=== PATIENT | male | born 1985 | race Caucasian/White ===

== ENCOUNTER 2020-03-02 19:08 | Inpatient (IN) | payer BC ==
[~2020-03-02] VITALS: Ht 167.6 cm; Wt 67.6 kg
[2020-03-02 20:00] VITALS: BP_SYST 140
--- NOTE | 2020-03-02 20:00 | NUR ---
Patient to ER bed 3 to gown for evaluation. Side rails up. Report given to MAGDA.
--- NOTE | 2020-03-02 20:10 | NUR ---
ER Dr. AGNEL at bedside examining patient.
--- NOTE | 2020-03-02 20:20 | NUR ---
Pt BIBA to ED C/O a 3-hour history of acute onset, mild seizure. Per EMS, patient had a seizure 1 hour prior to arrival witnessed by his girlfriend. On EMS arrival, patient appeared confused. He had a blood glucose in the 200s. He has no known history of seizures. On ED arrival, patient endorses feeling dizzy and vomiting all day. Symptoms associated with mild low back pain and mild shortness of breath. Patient admits to drinking half a pint of liquor every week. Denies any drug use, head injury, photophobia, neck pain or headache. Denies any flulike symptoms, fever, chest pain.
[2020-03-02] MEDS ORDERED: ONDANSETRON 4 MG ODT TAB PO ONE (20:45)
[2020-03-02 20:58] LABS: CALCIUM 9.7 mg/dL (8.4-11.0); CREATININE 1.04 mg/dL (0.55-1.30)
[2020-03-02 21:00] LABS: BASOPHILS % (AUTO) 0.3 % (0.0-2.0); HEMATOCRIT 44.3 % (36-54); HEMOGLOBIN 14.7 g/dL (14.0-18.0); LYMPHOCYTES # (AUTO) 0.5 K/uL (1.0-5.5); LYMPHOCYTES % (AUTO) 3.4 % (20.5-51.5); MEAN CORPUSCULAR HEMOGLOBIN 29 pg (27-31); MEAN CORPUSCULAR HGB CONC 33 % (32-36); MEAN CORPUSCULAR VOLUME 86 fL (79.0-98.0); MONOCYTES # (AUTO) 0.5 K/uL (0.0-1.0); MONOCYTES % (AUTO) 3.3 % (1.7-9.3); NEUTROPHILS # (AUTO) 13.1 K/uL (1.8-7.7); PLATELET COUNT (AUTO) 360 K/uL (130-430); RED BLOOD CELL COUNT(AUTO) 5.15 MIL/uL (4.2-6.2); RED CELL DISTRIBUTION WIDTH 20.7 % (9.0-15.0); WHITE BLOOD COUNT (AUTO) 14.1 K/uL (4.8-10.8)
--- NOTE | 2020-03-02 21:00 | NUR ---
Pt taken to Radiology in stable condition
[2020-03-02 21:04] LABS: ALBUMIN 4.7 g/dL (3.4-4.8); TOTAL BILIRUBIN 2.7 mg/dL (0.0-1.0)
[2020-03-02 21:12] LABS: POTASSIUM 2.6 mmol/L (3.5-5.1)
--- NOTE | 2020-03-02 21:20 | NUR ---
Pt back from Radiology, well tolerated
[2020-03-02] MEDS ORDERED: MAGNESIUM SULFATE 50 ML IV ONE (21:30)
[2020-03-02] MEDS ORDERED: KCL 40 mEq in 100 mL (PREMIX) 100 ML IV ONE (21:30)
[2020-03-02] MEDS ORDERED: POTASSIUM CHLORIDE 20 MEQ TAB.PRT.SR PO ONE (21:30)
[2020-03-02] MEDS ORDERED: KCL 20 mEq in 100 mL (PREMIX) 200 ML IV ONE (21:51)
--- NOTE | 2020-03-02 22:15 | NUR ---
VSS No s/s of acute distress. Resting on gurney rails up
--- NOTE | 2020-03-02 23:19 | NUR ---
Mg and Kcl IV replacements well tolerated
[2020-03-03] MEDS ORDERED: chlordiazePOXIDE HCL 25 MG CAPSULE PO ONE (00:15)
--- NOTE | 2020-03-03 00:30 | NUR ---
ADMISSION: The patient, ELSIE MI, 34 y/o, M admitted by DILLON LEE MD, was given written information regarding hospital policies, unit procedures and contact persons. Valuables were checked and charted. Patient AOx4. Potassium Chloride 20 meq started in ER continues infusing to IV in left wrist. Patient tolerating.
--- NOTE | 2020-03-03 00:30 | NUR ---
Patient will be admitted to care of . Admitted to Tele unit. Will go to room 109. Belongings list completed. Complete and up to date summary report printed. SBAR report to be given at bedside with opportunity for questions.
--- NOTE | 2020-03-03 00:30 | NUR ---
Transfer to Tele via ACLS protocol. Licensed nurse present. IV present no signs or symptoms of infiltration.
[2020-03-03 00:49] VITALS: BP_SYST 124
--- NOTE | 2020-03-03 02:40 | NUR ---
Paged Dr. Villalobos Patient vomitting, complains of feeling dizzy. Seizure precautions in place. Bed in lowest position, padded side rails, call light within reach. Paged Dr Villalobos for orders. Will continue to monitor patient.
--- NOTE | 2020-03-03 03:15 | NUR ---
Rounds Patient vomiting dark red/brown emesis, continuing to wait for Dr Villalobos to return page. Gave ice chips to patient, patient tolerating, HOB elevated.
--- NOTE | 2020-03-03 03:33 | NUR ---
PAGED PAGED Isreal NGUYỄN
--- NOTE | 2020-03-03 04:20 | NUR ---
Rounds Patient resting with eyes closed, no complaint at this time. HOB remains elevated. No vomiting at this time.
[2020-03-03] MEDS ORDERED: FOLIC ACID 1 MG, THIAMINE HCL 100 MG, MAGNESIUM SULFATE 1 GM, MVI 10 ML in NACL 0.9% 1,... IV SCH ×3 (05:00→17:30)
[2020-03-03] MEDS ORDERED: ONDANSETRON HCL 4 MG/2 ML VIAL IVP PRN ×2 (05:00→17:30)
--- NOTE | 2020-03-03 05:40 | NUR ---
Spoke with Dr Villalobos Spoke with Dr. Villalobos, received new orders for Zofran and Banana Bag. Orders entered.
--- NOTE | 2020-03-03 05:57 | NUR ---
CONSULTATION PAGED/CALLED Reason for Consultation: SEIZURE AND HYPOKALEMIA Person Who was Notified:SHARRON Consulting Physician: CARMEN Motor [employer] Chauffeur Specialty: Ordering Physician:Isreal LEE
--- NOTE | 2020-03-03 06:00 | NUR ---
IV out Attempted to give patient Zofran IVP as ordered, nurse found IV out. Patient states he must have pulled it out when he was asleep. Zofran held at this time until IV replaced. Will replace IV.
--- NOTE | 2020-03-03 06:30 | NUR ---
IV replaced IV replaced to left forearm 22G, patent and flushing well. Saline locked. HOB remains elevated, seizure precautions in place. Safety precautions maintained throughout shift. All needs met. Will continue to monitor until endorsed to AM nurse.
[2020-03-03 08:00] VITALS: BP_SYST 133
--- NOTE | 2020-03-03 08:00 | NUR ---
ASSUMPTION OF CARE: RECEIVED PT A/A/OX4, DX:RISK FOR INJURY, R/T SEIZURE, VSS, AFEBRILE, IV SITE INTACT, PATENT, NO REDNESS OR SWELLING, FALL,SZ. PRECAUTIONS IMPLEMENTED, SIDE RAILS PADDED UP X3, ORIENTED TO UNIT, CALL LIGHT PLACED WITHIN REACH, WILL CONT' TO MONITOR AND ASSESS.
[2020-03-03] MEDS ORDERED: THIAMINE HCL 100 MG, MAGNESIUM SULFATE 1 GM in NS 100 ML IV SCH (09:00)
[2020-03-03] MEDS ORDERED: FOLIC ACID 1 MG, MVI 10 ML in NACL 0.9% 1,000 ML IV SCH ×2 (09:00→18:00)
--- NOTE | 2020-03-03 09:00 | NUR ---
COVER CUTTER: MORNING MEDS GIVEN, PER ORDERED BY Yani, TOLERATED WELL, WILL CONT' TO MONITOR AND ASSESS.
--- NOTE | 2020-03-03 09:30 | NUR ---
EEG: EEG DONE AT THIS TIME, TOLERATED WELL, WILL CONT' TO MONITOR AND ASSESS.
[2020-03-03 12:00] VITALS: BP_SYST 139
--- NOTE | 2020-03-03 14:00 | NUR ---
MRI: PT OFF UNIT TO RADIOLOGY FOR MRI HEAD W/O CONTRAST, WILL CONT' WITH POC.
[2020-03-03 16:00] VITALS: BP_SYST 139
--- NOTE | 2020-03-03 17:00 | NUR ---
NURSES NOTES: PT RESTING IN BED, EASILY AROUSED VIA VERBAL STIMULI, NO S/S OF DISTRESS, NO SZ. ACTIVITY NOTED AT THIS TIME, PRECAUTIONS IMPLEMENTED, SIDE RAILS PADDED, UP X3, CALL LIGHT WITHIN REACH, FREQUENT ROUNDING BY NURSE AND STAFF, NEEDS MET, CALL LIGHT WITHIN REACH, WILL CONT' TO MONITOR AND ASSESS.
[2020-03-03] MEDS ORDERED: LORazepam 2 MG/ML VIAL IVP PRN (17:30)
[2020-03-03] MEDS ORDERED: ACETAMINOPHEN 325 MG TABLET PO PRN (17:30)
[2020-03-03] MEDS ORDERED: HYDROcodone/ACETAMIN 10-325 MG TAB PO PRN (17:30)
[2020-03-03] MEDS ORDERED: HYDROcodone/ACETAMIN 5-325 MG TAB (NORCO/ VICODIN) PO PRN (17:30)
--- NOTE | 2020-03-03 19:30 | NUR ---
INITIAL NOTE RECEIVED PATIENT IN BED EYES CLOSED RESTING WITH NO SIGNS OF DISTRESS NOTED. IVF RUNNING AND PT TOLERATING. IV SHOWS NO SIGNS OF INFILTRATION. HOB ELEVATED. CALL LIGHT WITHIN REACH, BED IN LOWEST POSITION AND BED ALARM ON. DINNER TRAY AT BEDSIDE. SEIZURE PRECAUTIONS IN PLACE, BED RAILS PADDED.
[2020-03-03 20:00] VITALS: BP_SYST 130
[2020-03-03] MEDS: chlordiazePOXIDE HCL 25 MG CAPSULE PO SCH (21:10)
[2020-03-03] MEDS: NORMAL SALINE 5 ML DISP.SYRIN IVF SCH ×2 (21:11→22:00)
--- NOTE | 2020-03-03 22:30 | NUR ---
ROUNDS AWAKE WATCHING TV, PATIENT DENIES FEELING OF NAUSEA AND REPORTS NO VOMITING AT THIS TIME. PATIENT TOLERATING PO WATER INTAKE HOWEVER REPORTS POOR APPETITE AT THIS TIME. NO ADDITIONAL NEEDS AT THIS TIME.
[2020-03-04] VITALS: BP_SYST 135
[2020-03-04] MEDS: FOLIC ACID 1 MG, MVI 10 ML in NACL 0.9% 1,000 ML IV SCH ×2 (01:15→16:04)
[2020-03-04] MEDS: THIAMINE HCL 100 MG, MAGNESIUM SULFATE 1 GM in NS 100 ML IV SCH ×2 (01:15→16:04)
--- NOTE | 2020-03-04 02:00 | NUR ---
ROUNDS RESTING COMFORTABLY WITH EYES CLOSED. CONTINUES TO TOLERATE IVF. WILL CONTINUE TO MONITOR.
[2020-03-04] MEDS: NORMAL SALINE 5 ML DISP.SYRIN IVF SCH ×2 (05:19→06:30)
[2020-03-04 07:23] LABS: BASOPHILS % (AUTO) 0.4 % (0.0-2.0); EOSINOPHILS % (AUTO) 0.4 % (0.0-4.0); HEMATOCRIT 45.3 % (36-54); HEMOGLOBIN 14.8 g/dL (14.0-18.0); LYMPHOCYTES # (AUTO) 1.7 K/uL (1.0-5.5); MEAN CORPUSCULAR HEMOGLOBIN 28 pg (27-31); MEAN CORPUSCULAR HGB CONC 33 % (32-36); MEAN CORPUSCULAR VOLUME 86 fL (79.0-98.0); MONOCYTES # (AUTO) 0.5 K/uL (0.0-1.0); MONOCYTES % (AUTO) 4.7 % (1.7-9.3); NEUTROPHILS # (AUTO) 7.7 K/uL (1.8-7.7); NEUTROPHILS % (AUTO) 77.5 % (40.0-70.0); RED BLOOD CELL COUNT(AUTO) 5.26 MIL/uL (4.2-6.2); RED CELL DISTRIBUTION WIDTH 20.6 % (9.0-15.0); WHITE BLOOD COUNT (AUTO) 9.9 K/uL (4.8-10.8)
[2020-03-04 07:53] LABS: ALBUMIN 3.8 g/dL (3.4-4.8); CALCIUM 9.1 mg/dL (8.4-11.0); CREATININE 0.76 mg/dL (0.55-1.30); TOTAL BILIRUBIN 1.1 mg/dL (0.0-1.0)
[2020-03-04 08:01] LABS: POTASSIUM 2.8 mmol/L (3.5-5.1)
[2020-03-04] MEDS ORDERED: POTASSIUM CHLORIDE 40 MEQ in NS 250 ML IV ONE (08:15)
[2020-03-04 08:19] VITALS: BP_SYST 140
[2020-03-04 08:24] LABS: PLATELET COUNT (AUTO) 270 K/uL (130-430)
[2020-03-04] MEDS: chlordiazePOXIDE HCL 25 MG CAPSULE PO SCH ×2 (08:54→16:03)
[2020-03-04] MEDS ORDERED: FOLIC ACID 1 MG TABLET PO SCH (09:00)
[2020-03-04] MEDS ORDERED: THIAMINE HCL 100 MG TABLET PO SCH (09:00)
[2020-03-04] MEDS ORDERED: MULTIVITAMINS TAB 1 TABLET PO SCH (09:00)
--- NOTE | 2020-03-04 10:21 | NUR ---
alert, oriented, no hand tremors noted. " start drinking at young age, it is a bit late to quit now, he said. K+ this am 2.8, 40meq K ivpb replaced at this time, at the rate of 60cc/hr, secondary to complaint of burning . patient explained just in case , has any sign or sx of etoh withdrawal, notify author for medication. verbalized understanding. bedrest now
--- NOTE | 2020-03-04 11:18 | NUR ---
Auto Driver Note Patient referred to Auto Driver by Nursing Assessment for alcohol abuse. APPRAISER AUDITOR also conducted a Discharge Plan Assessment. Met with patient at bedside. He is alert and oriented. He considers this a "wake up call" and plans to stop all drinking. APPRAISER AUDITOR provided substance abuse resources and advised starting with a program such as AA. Patient has been to AA in the past. He plans to quit on his own. Discussed. Patient confirmed he only wanted his mother on the face sheet. No apparent barriers to his return home where he lives with his fiance. SS/CM/DC Coordinator will remain available if needed.
[2020-03-04 12:13] VITALS: BP_SYST 124
--- NOTE | 2020-03-04 14:18 | NUR ---
Dietitian Recommendations *Continue Regular diet Please see Nutrition Assessment for further details. LT, RD
--- NOTE | 2020-03-04 15:37 | NUR ---
FIRST MOTHER CALLED, AND SAID THE PATIENT DISCHARGED [place] BY ATTENDING, NO WRITTEN ORDER, EXPLAINED TO HER. PATIENT COMPLETED HIS 250CC BAG WITH 40MEQ K IN IT, UNEVENTFULLY, BECAME ANGRY, AGGRESSIVE, " WANT TO GET OUT OF HERE, I WILL SIGN THE AMA FORM". EXPLAINED HE SHOULD WAIT FOR NEURO CONSULT BEFORE MAKING ANY DECISION, " NO I WANT TO GO NOW" AMA SIGNED, HEP LOCK , WRIST BAND OUT, SECURITY NOTIFIED ABOUT THE LEAVING.
--- NOTE | 2020-03-04 15:45 | NUR ---
BROUGHT THE AMA FORM FOR THE PATIENT TO SIGN, " CHANGED MY MIND, I WONT GO ANYWHERE".
[2020-03-04 16:12] VITALS: BP_SYST 124
--- NOTE | 2020-03-04 17:44 | NUR ---
Agreed to stay, finally. " i am very nervous, i need some meds to calm me down please. 1mg ATIVAN ivp given. Continues to get banana bag as ordered.
[2020-03-04] MEDS ORDERED: Thiamine Hcl PO (18:07)
[2020-03-04] MEDS ORDERED: POTA8TAB4 PO (18:07)
[2020-03-04] MEDS ORDERED: LIB25 PO (18:07)
[2020-03-04] MEDS ORDERED: FOLI-43 PO (18:07)
[2020-03-04] MEDS ORDERED: Multivitamins Tab PO (18:07)
[2020-03-04 18:17] VITALS: BP_SYST 132
[2020-03-04 19:30] VITALS: BP_SYST 129
--- NOTE | 2020-03-04 19:30 | NUR ---
RECEIVED REPORT FROM AMY BECK. PATIENT TO BE DC'D HOME, PER MORNING SHIFT RN, DC PAPERS AND DC HANDOUTS ALREADY DONE, PATIENT ALREADY EDUCATED REGARDING DC ORDERS AND MEDICATIONS. PATIENT SITTING IN CHAIR, BREATHING EVENLY AND NONLABORED ON ROOM AIR, VITAL SIGNS STABLE. IV ON LEFT FOREARM DISCONTINUED, IV CATHETER INTACT, PATIENT TOLERATED IT WELL, NO S/S OF INFECTION NOTED. NO OTHER NEEDS AT THIS TIME. PATIENT DISCHARGED HOME WITH SHANNAN.
== END 2020-03-04 19:35 | disposition home or self-care (01) | DRG 101 ==
LOC: SED 19:08 → STU 23:10
PROVIDERS: ADMIT Preventive Medicine Preventive Medicine/Occupational Environmental Medicine; ATTEND Preventive Medicine Preventive Medicine/Occupational Environmental Medicine
DX: G40.89 Other seizures (principal); E87.1 Hypo-osmolality and hyponatremia; E87.2 Acidosis; D72.829 Elevated white blood cell count, unspecified; E11.65 Type 2 diabetes mellitus with hyperglycemia; E87.6 Hypokalemia; F10.10 Alcohol abuse, uncomplicated; I10 Essential (primary) hypertension; E80.6 Other disorders of bilirubin metabolism; S00.512A Abrasion of oral cavity, initial encounter; X58.XXXA Exposure to other specified factors, initial encounter; Y93.89 Activity, other specified; Y92.89 Other specified places as the place of occurrence of the external cause; Y99.8 Other external cause status
CPT/HCPCS: 36415; 70450-TC; 70551; 80053; 83605; 83735-TC; 85025; 87040-TC; 93005; 95816; 96365; 96368; 99285; G0378; G0482; J2060; J2405; J3411; J3475; J3480; J3490; J7030; J7050; Q0162

== ENCOUNTER 2020-07-11 04:35 | Inpatient (IN) | payer BC, SELFPAY ==
[~2020-07-11] VITALS: Ht 167.6 cm; Wt 77.1 kg
[~2020-07-11 04:35] MED LIST: FOLI-43 PO; LIB25 PO; Multivitamins Tab PO; POTA8TAB4 PO; Thiamine Hcl PO
[2020-07-11 04:40] VITALS: BP_SYST 134
[2020-07-11] MEDS ORDERED: MORPHINE 4 MG/ML INJ. SYRINGE IM ONE (05:00)
[2020-07-11] MEDS ORDERED: MORPHINE 4 MG/ML INJ. SYRINGE IVP ONE (05:15)
[2020-07-11] MEDS ORDERED: fentaNYL CITRATE/PF 100 MCG/2 ML AMP IVP ONE ×2 (05:30→07:00)
[2020-07-11 06:14] LABS: BASOPHILS # (AUTO) 0.2 K/uL (0.0-0.2); BASOPHILS % (AUTO) 1.4 % (0.0-2.0); EOSINOPHILS % (AUTO) 0.2 % (0.0-4.0); HEMATOCRIT 45.6 % (36-54); HEMOGLOBIN 14.7 g/dL (14.0-18.0); LYMPHOCYTES # (AUTO) 1.5 K/uL (1.0-5.5); LYMPHOCYTES % (AUTO) 12.8 % (20.5-51.5); MEAN CORPUSCULAR HEMOGLOBIN 27 pg (27-31); MEAN CORPUSCULAR HGB CONC 32 % (32-36); MEAN CORPUSCULAR VOLUME 83 fL (79.0-98.0); MONOCYTES # (AUTO) 0.6 K/uL (0.0-1.0); MONOCYTES % (AUTO) 5.3 % (1.7-9.3); NEUTROPHILS # (AUTO) 9.1 K/uL (1.8-7.7); NEUTROPHILS % (AUTO) 80.3 % (40.0-70.0); PLATELET COUNT (AUTO) 368 K/uL (130-430); RED CELL DISTRIBUTION WIDTH 21.2 % (9.0-15.0); WHITE BLOOD COUNT (AUTO) 11.4 K/uL (4.8-10.8)
[2020-07-11] MEDS ORDERED: LIDOCAINE 1% 10 MG/ML, 20 ML MDV INJ ONE (06:30)
[2020-07-11 06:48] LABS: CALCIUM 9.1 mg/dL (8.4-11.0); CREATININE 1.98 mg/dL (0.55-1.30)
[2020-07-11] MEDS ORDERED: LIDOCAINE 1%, 20 ML MDV 20 ML ONE (06:53)
[2020-07-11 06:54] LABS: ALBUMIN 4.4 g/dL (3.4-4.8); TOTAL BILIRUBIN 0.3 mg/dL (0.0-1.0)
[2020-07-11] MEDS ORDERED: D5/0.45 NS 1,000 ML IV ONE (07:15)
[2020-07-11] MEDS ORDERED: INSULIN REGULAR, HUMAN 100 UNITS/ML, 10 ML VIAL (humuLIN R) SUBCUT PRN (07:15)
[2020-07-11] MEDS ORDERED: MORPHINE 2 MG/ML INJ. SYRINGE IVP PRN (07:15)
[2020-07-11] MEDS ORDERED: hydrALAZINE HCL 20 MG/ML VIAL IVP PRN (07:15)
[2020-07-11] MEDS ORDERED: LISI10TA5 PO (07:19)
[2020-07-11] MEDS ORDERED: GLU500 PO (07:19)
[2020-07-11 07:23] LABS: POTASSIUM 2.5 mmol/L (3.5-5.1)
[2020-07-11] MEDS ORDERED: KCL 20 mEq in NS 1000 mL 1,000 ML IV ONE (07:30)
[2020-07-11] MEDS ORDERED: POTASSIUM CHLORIDE 20 MEQ TAB.PRT.SR PO ONE (07:30)
[2020-07-11 07:43] LABS: PROTHROMBIN TIME 10.5 SECS (9.5-12.5)
[2020-07-11] MEDS: MORPHINE 2 MG/ML INJ. SYRINGE IVP PRN ×2 (08:49→11:01)
[2020-07-11 09:40] VITALS: BP_SYST 142
[2020-07-11] MEDS: ONDANSETRON HCL 4 MG/2 ML VIAL IVP PRN (10:30)
[2020-07-11 12:10] VITALS: BP_SYST 132
[2020-07-11] MEDS: HYDROmorphone 2 MG/ML VIAL IVP PRN ×3 (14:59→23:07)
[2020-07-11] MEDS: METOCLOPRAMIDE HCL 10 MG/2 ML VIAL IVP PRN ×2 (14:59→21:46)
[2020-07-11] MEDS ORDERED: HYDROmorphone 1 MG INJ. 1 MG/ML AMPUL IVP PRN (15:00)
[2020-07-11 16:30] VITALS: BP_SYST 132
[2020-07-11 20:00] VITALS: BP_SYST 142
[2020-07-11] MEDS: DIPHENHYDRAMINE INJ 50 MG/ML VIAL IVP PRN (23:58)
[2020-07-12] VITALS (13 sets, daily range): BP systolic 129–159
[2020-07-12] MEDS: HYDROmorphone 2 MG/ML VIAL IVP PRN ×4 (03:19→16:35)
[2020-07-12] MEDS: DIPHENHYDRAMINE INJ 50 MG/ML VIAL IVP PRN ×2 (05:57→14:30)
[2020-07-12 08:19] LABS: BILIRUBIN,URINE 1+ (NEGATIVE); BLOOD, URINE NEGATIVE (NEGATIVE); CLARITY/URINE CLEAR (CLEAR); COLOR,URINE YELLOW (YELLOW); GLUCOSE,URINE NEGATIVE (NEGATIVE); KETONES,URINE 1+ (NEGATIVE); LEUKOCYTE ESTERASE ,URINE NEGATIVE (NEGATIVE); NITRITE, URINE NEGATIVE (NEGATIVE); PH,URINE 6.5 (5.0-8.0); PROTEIN URINE TRACE (NEGATIVE)
[2020-07-12] MEDS: ONDANSETRON HCL 4 MG/2 ML VIAL IVP PRN (08:23)
[2020-07-12] MEDS: chlordiazePOXIDE HCL 25 MG CAPSULE PO SCH ×2 (15:00→21:00)
[2020-07-12 15:35] LABS: CALCIUM 9.5 mg/dL (8.4-11.0); CREATININE 0.68 mg/dL (0.55-1.30); POTASSIUM 3.5 mmol/L (3.5-5.1)
[2020-07-12] MEDS: metFORMIN HCL 500 MG TABLET PO SCH (18:46)
[2020-07-12] MEDS ORDERED: fentaNYL CITRATE/PF 100 MCG/2 ML AMP IVP PRN ×2 (20:15)
[2020-07-12] MEDS ORDERED: ONDANSETRON HCL 4 MG/2 ML VIAL IVP PRN (20:15)
[2020-07-12] MEDS ORDERED: ACETAMINOPHEN 325 MG TABLET PO PRN (20:30)
[2020-07-12] MEDS ORDERED: NALOXONE HCL 0.4 MG/ML AMP (NARCAN) IVP PRN (20:30)
[2020-07-12] MEDS: HYDROcodone/ACETAMIN 5-325 MG TAB (NORCO/ VICODIN) PO PRN (22:29)
[2020-07-13 01:08] VITALS: BP_SYST 155
[2020-07-13] MEDS: HYDROcodone/ACETAMIN 5-325 MG TAB (NORCO/ VICODIN) PO PRN ×4 (05:49→20:46)
[2020-07-13 08:00] VITALS: BP_SYST 139
[2020-07-13] MEDS: metFORMIN HCL 500 MG TABLET PO SCH ×2 (08:51→18:53)
[2020-07-13] MEDS: chlordiazePOXIDE HCL 25 MG CAPSULE PO SCH ×3 (08:51→21:00)
[2020-07-13] MEDS ORDERED: POTASSIUM CHLORIDE 8 MEQ TABLET.SA PO SCH (09:00)
[2020-07-13] MEDS ORDERED: LISINOPRIL 10 MG TABLET (PRINIVIL) PO SCH (09:00)
[2020-07-13] MEDS ORDERED: FOLIC ACID 1 MG TABLET PO SCH (09:00)
[2020-07-13 12:16] VITALS: BP_SYST 130
[2020-07-13 16:18] VITALS: BP_SYST 116
[2020-07-13 20:00] VITALS: BP_SYST 119
[2020-07-13 20:58] VITALS: BP_SYST 119
== END 2020-07-13 21:45 | disposition home or self-care (01) | DRG 563 ==
LOC: SED 04:35 → SMU 07:12
PROVIDERS: ADMIT Internal Medicine; ATTEND Internal Medicine
PROC: 0HQ1XZZ Repair Face Skin, External Approach (ICD-10-PCS; principal; 2020-07-11)
PROC: 0PSDXZZ Reposition Left Humeral Head, External Approach (ICD-10-PCS; 2020-07-13)
DX: S42.252A Displaced fracture of greater tuberosity of left humerus, initial encounter for closed fracture (principal); W10.8XXA Fall (on) (from) other stairs and steps, initial encounter; S01.91XA Laceration without foreign body of unspecified part of head, initial encounter; R58 Hemorrhage, not elsewhere classified; I10 Essential (primary) hypertension; Z20.828 Contact with and (suspected) exposure to other viral communicable diseases; S42.92XA Fracture of left shoulder girdle, part unspecified, initial encounter for closed fracture; Y93.89 Activity, other specified; Y99.8 Other external cause status; Y92.89 Other specified places as the place of occurrence of the external cause; Z79.899 Other long term (current) drug therapy
CPT/HCPCS: 36415; 70450-TC; 72125-TC; 73030; 73200-TC; 76000; 80048; 80053; 81003; 82962; 84132-TC; 85025; 85610-TC; 86886; 86900; 86901; 87081; 96361; 96374; 96375; 96376; 99285; A4565; J1170; J1200; J1815; J2001; J2270; J2405; J2765; J3010; J3480

== ENCOUNTER 2020-11-11 18:38 | Emergency (ER) | payer BC, SELFPAY ==
[~2020-11-11] VITALS: Ht 167.6 cm; Wt 72.6 kg
[2020-11-11 18:38] VITALS: BP_SYST 153
[~2020-11-11 18:38] MED LIST changes: +GLU500 PO; +LISI10TA5 PO; -Multivitamins Tab PO; -Thiamine Hcl PO
[2020-11-11] MEDS ORDERED: NS 500 ML IV ONE ×2 (18:45→19:00)
[2020-11-11 19:38] LABS: ANION GAP 22 (5-15); CALCIUM 9.3 mg/dL (8.4-11.0); CHLORIDE 99 mmol/L (98-107); CREATININE 1.26 mg/dL (0.55-1.30); GLUCOSE 95 mg/dL (70-99); POTASSIUM 3.9 mmol/L (3.5-5.1); SODIUM SERUM 138 mmol/L (136-145); UREA NITROGEN, BLOOD 14 mg/dL (8-21)
[2020-11-11 19:43] LABS: ALANINE AMINOTRANSFERASE 93 U/L (12-78); ALBUMIN 4.3 g/dL (3.4-4.8); ASPARTATE AMINOTRANSFERASE 84 U/L (10-37); TOTAL BILIRUBIN 1.2 mg/dL (0.0-1.0)
[2020-11-11 19:48] LABS: BASOPHILS # (AUTO) 0.1 K/uL (0.0-0.2); EOSINOPHILS # (AUTO) 0.1 K/uL (0.0-0.4); EOSINOPHILS % (AUTO) 2.4 % (0.0-4.0); HEMATOCRIT 47.1 % (36-54); HEMOGLOBIN 15.4 g/dL (14.0-18.0); LYMPHOCYTES # (AUTO) 0.4 K/uL (1.0-5.5); LYMPHOCYTES % (AUTO) 7.4 % (20.5-51.5); MEAN CORPUSCULAR HEMOGLOBIN 30 pg (27-31); MEAN CORPUSCULAR HGB CONC 33 % (32-36); MEAN CORPUSCULAR VOLUME 90 fL (79.0-98.0); MONOCYTES # (AUTO) 0.3 K/uL (0.0-1.0); MONOCYTES % (AUTO) 4.6 % (1.7-9.3); NEUTROPHILS # (AUTO) 4.7 K/uL (1.8-7.7); NEUTROPHILS % (AUTO) 83.6 % (40.0-70.0); PLATELET COUNT (AUTO) 382 K/uL (130-430); RED BLOOD CELL COUNT(AUTO) 5.23 MIL/uL (4.2-6.2); RED CELL DISTRIBUTION WIDTH 21.2 % (9.0-15.0); WHITE BLOOD COUNT (AUTO) 5.6 K/uL (4.8-10.8)
[2020-11-11 19:49] LABS: GFR AFRICAN AMERICAN 83 mL/min (>90)
[2020-11-11 19:54] LABS: ACETAMINOPHEN < 1 ug/mL (1-30); ALCOHOL, BLOOD < 3 mg/dL (<10)
[2020-11-11 19:55] LABS: BARBITURATE, URINE NEGATIVE (NEG <=200); BENZODIAZEPINE, URINE POSITIVE (NEG <=150); CANNABINOID, URINE POSITIVE (NEG <=50); COCAINE, URINE POSITIVE (NEG <=150); METHAMPHETAMINES SCREEN,URINE NEGATIVE (NEG <=500); OPIATE, URINE NEGATIVE (NEG <=100); PHENCYCLIDINE SCREEN,URINE NEGATIVE (NEG <=25); UR TRICYCLIC ANTIDEPRESSANTS NEGATIVE (NEG <=300); URINE AMPHETAMINE NEGATIVE (NEG <=500); URINE METHADONE NEGATIVE (NEG <=200); URINE OXYCODONE SCREEN NEGATIVE (NEG <=100); URINE PROPOXYPHENE SCREEN NEGATIVE (NEG <=300)
[2020-11-11] MEDS ORDERED: LORazepam 2 MG/ML VIAL IVP ONE (20:00)
[2020-11-11 20:46] VITALS: BP_SYST 133
== END 2020-11-11 20:46 | disposition home or self-care (01) ==
LOC: SED 18:38
DX: F19.10 Other psychoactive substance abuse, uncomplicated (principal); R56.9 Unspecified convulsions; I10 Essential (primary) hypertension; E11.9 Type 2 diabetes mellitus without complications; Z79.899 Other long term (current) drug therapy
CPT/HCPCS: 36415; 70450; 80053; 80307; 85025; 93005; 96361; 96374; 99285; G0480; G0481; G0482; J7040

== ENCOUNTER 2021-01-05 15:04 | Emergency (ER) | payer BC ==
[~2021-01-05] VITALS: Ht 167.6 cm; Wt 77.1 kg
[~2021-01-05 15:04] MED LIST changes: +LISI10TA29 PO; -LISI10TA5 PO
[2021-01-05 15:07] VITALS: BP_SYST 161
[2021-01-05] MEDS ORDERED: LIB25 PO (15:17)
[2021-01-05 16:07] LABS: BASOPHILS # (AUTO) 0.2 K/uL (0.0-0.2); BASOPHILS % (AUTO) 2.7 % (0.0-2.0); EOSINOPHILS # (AUTO) 0.1 K/uL (0.0-0.4); HEMATOCRIT 40.8 % (36-54); HEMOGLOBIN 13.8 g/dL (14.0-18.0); LYMPHOCYTES # (AUTO) 0.4 K/uL (1.0-5.5); LYMPHOCYTES % (AUTO) 7.2 % (20.5-51.5); MEAN CORPUSCULAR HEMOGLOBIN 31 pg (27-31); MEAN CORPUSCULAR HGB CONC 34 % (32-36); MEAN CORPUSCULAR VOLUME 91 fL (79.0-98.0); MONOCYTES # (AUTO) 0.3 K/uL (0.0-1.0); MONOCYTES % (AUTO) 5.6 % (1.7-9.3); NEUTROPHILS # (AUTO) 4.7 K/uL (1.8-7.7); NEUTROPHILS % (AUTO) 82.5 % (40.0-70.0); PLATELET COUNT (AUTO) 364 K/uL (130-430); RED BLOOD CELL COUNT(AUTO) 4.48 MIL/uL (4.2-6.2); RED CELL DISTRIBUTION WIDTH 19.7 % (9.0-15.0); WHITE BLOOD COUNT (AUTO) 5.6 K/uL (4.8-10.8)
[2021-01-05 16:21] LABS: C-REACTIVE PROTEIN QUANT 0.4 mg/dL (0-0.5)
[2021-01-05 16:23] LABS: ACETONE, SERUM NEGATIVE (NEGATIVE)
[2021-01-05 16:25] LABS: ALANINE AMINOTRANSFERASE 75 U/L (12-78); ALBUMIN 3.7 g/dL (3.4-4.8); ANION GAP 14 (5-15); ASPARTATE AMINOTRANSFERASE 104 U/L (10-37); CALCIUM 7.5 mg/dL (8.4-11.0); CHLORIDE 102 mmol/L (98-107); CREATININE 0.76 mg/dL (0.55-1.30); GLUCOSE 82 mg/dL (70-99); POTASSIUM 3.3 mmol/L (3.5-5.1); SODIUM SERUM 140 mmol/L (136-145); TOTAL BILIRUBIN 1.1 mg/dL (0.0-1.0); UREA NITROGEN, BLOOD 9 mg/dL (8-21)
[2021-01-05 16:28] LABS: GFR AFRICAN AMERICAN 148 mL/min (>90)
[2021-01-05] MEDS ORDERED: CLIN300C12 PO (16:41)
[2021-01-05] MEDS ORDERED: CLOT15CR5 TP (16:52)
[2021-01-05 16:57] VITALS: BP_SYST 161
== END 2021-01-05 16:58 | disposition home or self-care (01) ==
LOC: SED 15:04
DX: L03.116 Cellulitis of left lower limb (principal); L03.115 Cellulitis of right lower limb; I10 Essential (primary) hypertension; E11.9 Type 2 diabetes mellitus without complications; Z79.899 Other long term (current) drug therapy; W57.XXXA Bitten or stung by nonvenomous insect and other nonvenomous arthropods, initial encounter; Y93.89 Activity, other specified; Y92.89 Other specified places as the place of occurrence of the external cause; Y99.8 Other external cause status
CPT/HCPCS: 36415; 80053; 82009-TC; 83605; 85025; 85610-TC; 85730-TC; 86140; 99283

== ENCOUNTER 2021-02-13 19:37 | Emergency (ER) | payer BC ==
[~2021-02-13] VITALS: Ht 167.6 cm; Wt 74.8 kg
[2021-02-13 19:37] VITALS: BP_SYST 135
[~2021-02-13 19:37] MED LIST changes: +CLIN300C12 PO; +CLOT15CR5 TP; -POTA8TAB4 PO
--- NOTE | 2021-02-13 19:37 | NUR ---
Patient biba to bed 4 for evaluation
--- NOTE | 2021-02-13 19:39 | NUR ---
ER at bedside examining patient.
[2021-02-13] MEDS ORDERED: levETIRAcetam 1,000 MG in NS 90 ML IV ONE (19:45)
[2021-02-13 20:27] LABS: BASOPHILS # (AUTO) 0.1 K/uL (0.0-0.2); BASOPHILS % (AUTO) 0.6 % (0.0-2.0); EOSINOPHILS % (AUTO) 0.1 % (0.0-4.0); HEMATOCRIT 44.7 % (36-54); LYMPHOCYTES # (AUTO) 1.2 K/uL (1.0-5.5); LYMPHOCYTES % (AUTO) 10.6 % (20.5-51.5); MEAN CORPUSCULAR HEMOGLOBIN 30 pg (27-31); MEAN CORPUSCULAR HGB CONC 34 % (32-36); MEAN CORPUSCULAR VOLUME 88 fL (79.0-98.0); MONOCYTES # (AUTO) 0.6 K/uL (0.0-1.0); MONOCYTES % (AUTO) 5.2 % (1.7-9.3); NEUTROPHILS # (AUTO) 9.1 K/uL (1.8-7.7); NEUTROPHILS % (AUTO) 83.5 % (40.0-70.0); PLATELET COUNT (AUTO) 236 K/uL (130-430); RED BLOOD CELL COUNT(AUTO) 5.05 MIL/uL (4.2-6.2); RED CELL DISTRIBUTION WIDTH 20.1 % (9.0-15.0); WHITE BLOOD COUNT (AUTO) 10.9 K/uL (4.8-10.8)
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
[2021-02-13 20:40] LABS: ANION GAP 14 (5-15); CALCIUM 9.2 mg/dL (8.4-11.0); CHLORIDE 90 mmol/L (98-107); CREATININE 1.31 mg/dL (0.55-1.30); GLUCOSE 139 mg/dL (70-99); SODIUM SERUM 131 mmol/L (136-145); UREA NITROGEN, BLOOD 19 mg/dL (8-21)
[2021-02-13 20:46] LABS: GFR AFRICAN AMERICAN 79 mL/min (>90); POTASSIUM 2.9 mmol/L (3.5-5.1)
[2021-02-13 20:56] LABS: ASPARTATE AMINOTRANSFERASE 149 U/L (10-37); TOTAL BILIRUBIN 1.3 mg/dL (0.0-1.0)
[2021-02-13 20:57] LABS: ALANINE AMINOTRANSFERASE 94 U/L (12-78); ALCOHOL, BLOOD < 3 mg/dL (<10)
[2021-02-13] MEDS ORDERED: LEVE500T9 PO (21:39)
[2021-02-13] MEDS ORDERED: LORA-259 PO (21:46)
[2021-02-13 22:15] VITALS: BP_SYST 135
--- NOTE | 2021-02-13 22:15 | NUR ---
Patient given written and verbal discharge instructions and verbalizes understanding. ER DR BOBO YOUNGER discussed with patient the results and treatment provided. Patient in stable condition. ID arm band removed. IV catheter removed intact and dressing applied, no active bleeding. Rx of KEPPRA AND ATIVAN given. Patient educated on pain management and to follow up with PMD. Pain Scale . Opportunity for questions provided and answered. Medication side effect fact sheet provided.
== END 2021-02-13 22:15 | disposition home or self-care (01) ==
LOC: SED 19:37
DX: F10.239 Alcohol dependence with withdrawal, unspecified (principal); R56.9 Unspecified convulsions; I10 Essential (primary) hypertension; E11.9 Type 2 diabetes mellitus without complications; Z79.899 Other long term (current) drug therapy; Y90.0 Blood alcohol level of less than 20 mg/100 ml
CPT/HCPCS: 36415; 70450; 76376; 80053; 85025; 96365; 99284; G0482; J1953

== ENCOUNTER 2021-02-25 13:07 | Inpatient (IN) | payer BC, SELFPAY ==
[~2021-02-25] VITALS: Ht 167.6 cm; Wt 65.3 kg
[2021-02-25 13:07] VITALS: BP_SYST 164
[~2021-02-25 13:07] MED LIST changes: +LEVE500T9 PO; +LORA-259 PO
[2021-02-25] MEDS ORDERED: LORazepam 2 MG/ML VIAL IVP ONE ×2 (13:15→15:00)
[2021-02-25] MEDS ORDERED: NACL 0.9% 2,000 ML IV ONE (13:15)
[2021-02-25 13:42] LABS: BARBITURATE, URINE NEGATIVE (NEG <=200); BENZODIAZEPINE, URINE POSITIVE (NEG <=150); CANNABINOID, URINE POSITIVE (NEG <=50); COCAINE, URINE NEGATIVE (NEG <=150); METHAMPHETAMINES SCREEN,URINE NEGATIVE (NEG <=500); OPIATE, URINE NEGATIVE (NEG <=100); PHENCYCLIDINE SCREEN,URINE NEGATIVE (NEG <=25); UR TRICYCLIC ANTIDEPRESSANTS NEGATIVE (NEG <=300); URINE AMPHETAMINE NEGATIVE (NEG <=500); URINE METHADONE NEGATIVE (NEG <=200); URINE OXYCODONE SCREEN NEGATIVE (NEG <=100); URINE PROPOXYPHENE SCREEN NEGATIVE (NEG <=300)
[2021-02-25 13:58] LABS: ANION GAP 24 (5-15); CALCIUM 9.3 mg/dL (8.4-11.0); CHLORIDE 90 mmol/L (98-107); CREATININE 1.63 mg/dL (0.55-1.30); GLUCOSE 174 mg/dL (70-99); POTASSIUM 3.6 mmol/L (3.5-5.1); SODIUM SERUM 137 mmol/L (136-145); UREA NITROGEN, BLOOD 10 mg/dL (8-21)
[2021-02-25 14:04] LABS: ALBUMIN 4.4 g/dL (3.4-4.8); ASPARTATE AMINOTRANSFERASE 86 U/L (10-37)
[2021-02-25 14:13] LABS: ALCOHOL, BLOOD < 3 mg/dL (<10); GFR AFRICAN AMERICAN 62 mL/min (>90)
[2021-02-25 14:17] LABS: ACETONE, SERUM NEGATIVE (NEGATIVE); BASOPHILS # (AUTO) 0.1 K/uL (0.0-0.2); BASOPHILS % (AUTO) 0.3 % (0.0-2.0); HEMATOCRIT 48.5 % (36-54); HEMOGLOBIN 15.8 g/dL (14.0-18.0); LYMPHOCYTES # (AUTO) 1.2 K/uL (1.0-5.5); LYMPHOCYTES % (AUTO) 7.6 % (20.5-51.5); MEAN CORPUSCULAR HEMOGLOBIN 29 pg (27-31); MEAN CORPUSCULAR HGB CONC 33 % (32-36); MEAN CORPUSCULAR VOLUME 90 fL (79.0-98.0); MONOCYTES # (AUTO) 1.5 K/uL (0.0-1.0); MONOCYTES % (AUTO) 9.4 % (1.7-9.3); NEUTROPHILS # (AUTO) 13.1 K/uL (1.8-7.7); NEUTROPHILS % (AUTO) 82.7 % (40.0-70.0); PLATELET COUNT (AUTO) 491 K/uL (130-430); RED BLOOD CELL COUNT(AUTO) 5.38 MIL/uL (4.2-6.2); RED CELL DISTRIBUTION WIDTH 19.7 % (9.0-15.0); WHITE BLOOD COUNT (AUTO) 15.8 K/uL (4.8-10.8)
[2021-02-25 14:36] LABS: ALANINE AMINOTRANSFERASE 110 U/L (12-78)
[2021-02-25] MEDS ORDERED: FOLIC ACID 1 MG, THIAMINE HCL 100 MG, MAGNESIUM SULFATE 1 GM, MVI 10 ML in NACL 0.9% 1,... IV ONE (14:45)
[2021-02-25] MEDS ORDERED: THIAMINE HCL 100 MG, MAGNESIUM SULFATE 1 GM in NS 100 ML IV ONE (15:00)
[2021-02-25] MEDS ORDERED: FOLIC ACID 1 MG, MVI 10 ML in NACL 0.9% 1,000 ML IV ONE (15:00)
[2021-02-25 15:02] LABS: BILIRUBIN,URINE NEGATIVE (NEGATIVE); CLARITY/URINE CLEAR (CLEAR); GLUCOSE,URINE TRACE (NEGATIVE); KETONES,URINE TRACE (NEGATIVE); LEUKOCYTE ESTERASE ,URINE NEGATIVE (NEGATIVE); NITRITE, URINE NEGATIVE (NEGATIVE); PROTEIN URINE 2+ (NEGATIVE); UROBILINOGEN,URINE 0.2 (0.2-1.0)
[2021-02-25 15:05] LABS: BLOOD, URINE TRACE (NEGATIVE); COLOR,URINE YELLOW (YELLOW)
[2021-02-25 15:10] LABS: BACTERIA,URINE FEW /HPF (None Seen); HYALINE CASTS, URINE 0-10 /LPF (None Seen); RBC,URINE 0-3 /HPF (0-3); WBC,URINE 0-3 /HPF (0-3)
[2021-02-25 15:11] LABS: MUCUS,URINE 2+ /LPF (None Seen)
[2021-02-25] MEDS: PIPERACILLIN/TAZO 3.375 GM in NS 50 ML IV ONE ×2 (15:21→15:36)
[2021-02-25] MEDS ORDERED: FOLIC ACID 5 MG/ML VIAL IV ONE (15:23)
[2021-02-25] MEDS ORDERED: MVI 10 ML VIAL IV ONE (15:23)
[2021-02-25] MEDS ORDERED: PIPERACILLIN/TAZOBACTAM 3.375 GM/VIAL (ZOSYN) IV ONE (15:24)
[2021-02-25 15:29] LABS: INFLUENZA A&B ANTIGEN SCREEN NEGATIVE FOR A & B (NEGATIVE)
[2021-02-25] MEDS ORDERED: LIP40 PO (15:34)
[2021-02-25] MEDS ORDERED: GLIM1TAB PO (15:34)
[2021-02-25] MEDS ORDERED: ACETAMINOPHEN 325 MG TABLET PO PRN (15:45)
[2021-02-25] MEDS ORDERED: ZOLPIDEM TARTRATE 5 MG TABLET PO PRN (15:45)
[2021-02-25] MEDS ORDERED: LORazepam 2 MG/ML VIAL IVP PRN ×2 (15:45→21:15)
[2021-02-25] MEDS ORDERED: MUPIROCIN 2% TOPICAL OINTMENT 22 GM NS PRN (15:45)
[2021-02-25] MEDS: D5NS 1,000 ML IV SCH ×2 (15:45→21:51)
[2021-02-25] MEDS ORDERED: DOCUSATE SODIUM 100 MG CAPSULE PO PRN (15:45)
[2021-02-25] MEDS ORDERED: MAGNESIUM SULFATE 50 ML IV PRN (15:45)
[2021-02-25] MEDS ORDERED: POTASSIUM CHLORIDE 20 MEQ TAB.PRT.SR PO PRN (15:45)
[2021-02-25] MEDS ORDERED: ONDANSETRON HCL 4 MG/2 ML VIAL IVP PRN (15:45)
[2021-02-25 16:20] VITALS: BP_SYST 148
[2021-02-25 18:00] LABS: BARBITURATE, URINE NEGATIVE (NEG <=200); BENZODIAZEPINE, URINE POSITIVE (NEG <=150); CANNABINOID, URINE POSITIVE (NEG <=50); COCAINE, URINE NEGATIVE (NEG <=150); METHAMPHETAMINES SCREEN,URINE NEGATIVE (NEG <=500); OPIATE, URINE NEGATIVE (NEG <=100); PHENCYCLIDINE SCREEN,URINE NEGATIVE (NEG <=25); UR TRICYCLIC ANTIDEPRESSANTS NEGATIVE (NEG <=300); URINE AMPHETAMINE NEGATIVE (NEG <=500); URINE METHADONE NEGATIVE (NEG <=200); URINE OXYCODONE SCREEN NEGATIVE (NEG <=100); URINE PROPOXYPHENE SCREEN NEGATIVE (NEG <=300)
[2021-02-25 20:21] VITALS: BP_SYST 153
[2021-02-25] MEDS ORDERED: chlordiazePOXIDE HCL 25 MG CAPSULE PO SCH (21:00)
[2021-02-26] MEDS: LORazepam 2 MG/ML VIAL IVP SCH ×4 (00:46→18:14)
[2021-02-26 00:50] VITALS: BP_SYST 134
[2021-02-26] MEDS: D5NS 1,000 ML IV SCH ×3 (05:26→18:16)
[2021-02-26 06:21] LABS: BASOPHILS # (AUTO) 0.1 K/uL (0.0-0.2); BASOPHILS % (AUTO) 0.9 % (0.0-2.0); EOSINOPHILS % (AUTO) 0.3 % (0.0-4.0); HEMATOCRIT 40.7 % (36-54); HEMOGLOBIN 13.3 g/dL (14.0-18.0); LYMPHOCYTES # (AUTO) 1.7 K/uL (1.0-5.5); LYMPHOCYTES % (AUTO) 14.5 % (20.5-51.5); MEAN CORPUSCULAR HEMOGLOBIN 29 pg (27-31); MEAN CORPUSCULAR HGB CONC 33 % (32-36); MEAN CORPUSCULAR VOLUME 89 fL (79.0-98.0); MONOCYTES # (AUTO) 0.9 K/uL (0.0-1.0); MONOCYTES % (AUTO) 7.5 % (1.7-9.3); NEUTROPHILS # (AUTO) 8.7 K/uL (1.8-7.7); NEUTROPHILS % (AUTO) 76.8 % (40.0-70.0); PLATELET COUNT (AUTO) 439 K/uL (130-430); RED BLOOD CELL COUNT(AUTO) 4.57 MIL/uL (4.2-6.2); RED CELL DISTRIBUTION WIDTH 19.5 % (9.0-15.0); WHITE BLOOD COUNT (AUTO) 11.4 K/uL (4.8-10.8)
[2021-02-26 06:44] LABS: ALBUMIN 3.3 g/dL (3.4-4.8); BILIRUBIN,DIRECT 0.2 mg/dL (0.0-0.3); CREATININE 0.71 mg/dL (0.55-1.30)
[2021-02-26 08:00] VITALS: BP_SYST 157
[2021-02-26] MEDS ORDERED: POTASSIUM CHLORIDE 40 MEQ, LIDOCAINE JECT 2% PF 100 MG 50 MG in NS 250 ML IV ONE (10:30)
[2021-02-26] MEDS ORDERED: ATORVASTATIN 20 MG TABLET PO ONE (12:00)
[2021-02-26] MEDS ORDERED: INSULIN LISPRO SLIDING SCALE 100 UNITS/ML VIAL (humaLOG) SUBCUT PRN (12:15)
[2021-02-26] MEDS ORDERED: GLUCOSE (DEXTROSE) ORAL GEL -Adults PO PRN (12:15)
[2021-02-26] MEDS ORDERED: HEPARIN SODIUM,PORCINE 5,000 UNITS/ML VIAL SUBCUT ONE (12:15)
[2021-02-26] MEDS ORDERED: DEXTROSE 50%-WATER 50 ML DISP.SYRIN IVP PRN (12:15)
[2021-02-26] MEDS ORDERED: D5W 1,000 ML IV PRN (12:15)
[2021-02-26 14:06] VITALS: BP_SYST 128
[2021-02-26 16:48] VITALS: BP_SYST 143
[2021-02-26 20:26] VITALS: BP_SYST 139
[2021-02-26] MEDS: HEPARIN SODIUM,PORCINE 5,000 UNITS/ML VIAL SUBCUT SCH (21:07)
[2021-02-27] VITALS: BP_SYST 137
[2021-02-27] MEDS: LORazepam 2 MG/ML VIAL IVP SCH ×2 (00:18→06:56)
[2021-02-27] MEDS: D5NS 1,000 ML IV SCH ×3 (00:25→14:25)
[2021-02-27] MEDS ORDERED: GLIMEPIRIDE 2 MG TABLET PO SCH (07:00)
[2021-02-27 07:36] VITALS: BP_SYST 140
[2021-02-27 07:42] LABS: BASOPHILS # (AUTO) 0.1 K/uL (0.0-0.2); BASOPHILS % (AUTO) 1.1 % (0.0-2.0); EOSINOPHILS # (AUTO) 0.1 K/uL (0.0-0.4); EOSINOPHILS % (AUTO) 0.7 % (0.0-4.0); HEMATOCRIT 41.8 % (36-54); HEMOGLOBIN 13.4 g/dL (14.0-18.0); LYMPHOCYTES # (AUTO) 2.3 K/uL (1.0-5.5); LYMPHOCYTES % (AUTO) 25.4 % (20.5-51.5); MEAN CORPUSCULAR HEMOGLOBIN 29 pg (27-31); MEAN CORPUSCULAR HGB CONC 32 % (32-36); MEAN CORPUSCULAR VOLUME 90 fL (79.0-98.0); MONOCYTES # (AUTO) 0.7 K/uL (0.0-1.0); MONOCYTES % (AUTO) 7.5 % (1.7-9.3); NEUTROPHILS # (AUTO) 5.9 K/uL (1.8-7.7); NEUTROPHILS % (AUTO) 65.3 % (40.0-70.0); PLATELET COUNT (AUTO) 460 K/uL (130-430); RED BLOOD CELL COUNT(AUTO) 4.63 MIL/uL (4.2-6.2); RED CELL DISTRIBUTION WIDTH 19.7 % (9.0-15.0); WHITE BLOOD COUNT (AUTO) 9.1 K/uL (4.8-10.8)
[2021-02-27 07:57] LABS: CALCIUM 8.3 mg/dL (8.4-11.0); CREATININE 0.59 mg/dL (0.55-1.30); POTASSIUM 3.8 mmol/L (3.5-5.1)
[2021-02-27] MEDS: HEPARIN SODIUM,PORCINE 5,000 UNITS/ML VIAL SUBCUT SCH (08:29)
[2021-02-27] MEDS ORDERED: ATORVASTATIN 20 MG TABLET PO SCH (09:00)
[2021-02-27 11:29] VITALS: BP_SYST 133
[2021-02-27] MEDS ORDERED: LIB25 PO (14:25)
[2021-02-27 14:32] VITALS: BP_SYST 133
[2021-02-27] MEDS ORDERED: chlordiazePOXIDE HCL 25 MG CAPSULE PO SCH (15:00)
== END 2021-02-27 14:52 | disposition home or self-care (01) | DRG 100 ==
LOC: SED 13:07 → STU 15:26
PROVIDERS: ADMIT General Practice; ATTEND General Practice
DX: R56.9 Unspecified convulsions (principal); G92 Toxic encephalopathy; N17.0 Acute kidney failure with tubular necrosis; E87.3 Alkalosis; E44.1 Mild protein-calorie malnutrition; E87.2 Acidosis; F10.231 Alcohol dependence with withdrawal delirium; D72.829 Elevated white blood cell count, unspecified; Z20.822 Contact with and (suspected) exposure to COVID-19; E11.9 Type 2 diabetes mellitus without complications; E78.5 Hyperlipidemia, unspecified; R74.01 Elevation of levels of liver transaminase levels; I10 Essential (primary) hypertension; F12.10 Cannabis abuse, uncomplicated; E86.0 Dehydration; M10.9 Gout, unspecified; E87.6 Hypokalemia; Z90.81 Acquired absence of spleen; Z68.23 Body mass index [BMI] 23.0-23.9, adult
CPT/HCPCS: 36415; 36600; 70450-TC; 71045; 76376; 80048; 80053; 80076; 80307; 81000; 82009; 82803-TC; 82962; 83036; 83605; 83735; 84550; 85025; 86710; 87040-TC; 87086; 93005; 96361; 96374; 96375; 96376; 99285; G0378; G0482; J1644; J2060; J2543; J3411; J3475; J3480; J3490; J7030; J7042; J7050

== ENCOUNTER 2021-03-07 14:05 | Emergency (ER) | payer BC, SELFPAY ==
[~2021-03-07] VITALS: Ht 188 cm; Wt 108.9 kg
[~2021-03-07 14:05] MED LIST changes: -CLIN300C12 PO; -CLOT15CR5 TP; -FOLI-43 PO; +GLIM1TAB PO; -GLU500 PO; -LEVE500T9 PO; +LIP40 PO; -LISI10TA29 PO; -LORA-259 PO
[2021-03-07 14:08] VITALS: BP_SYST 165
[2021-03-07 14:55] LABS: BASOPHILS # (AUTO) 0.1 K/uL (0.0-0.2); BASOPHILS % (AUTO) 1.1 % (0.0-2.0); HEMATOCRIT 46.4 % (36-54); HEMOGLOBIN 15.5 g/dL (14.0-18.0); LYMPHOCYTES # (AUTO) 2.4 K/uL (1.0-5.5); LYMPHOCYTES % (AUTO) 30.2 % (20.5-51.5); MEAN CORPUSCULAR HEMOGLOBIN 29 pg (27-31); MEAN CORPUSCULAR HGB CONC 33 % (32-36); MEAN CORPUSCULAR VOLUME 88 fL (79.0-98.0); MONOCYTES # (AUTO) 0.5 K/uL (0.0-1.0); MONOCYTES % (AUTO) 6.1 % (1.7-9.3); NEUTROPHILS # (AUTO) 4.9 K/uL (1.8-7.7); NEUTROPHILS % (AUTO) 62.6 % (40.0-70.0); PLATELET COUNT (AUTO) 339 K/uL (130-430); RED BLOOD CELL COUNT(AUTO) 5.27 MIL/uL (4.2-6.2); RED CELL DISTRIBUTION WIDTH 20.6 % (9.0-15.0); WHITE BLOOD COUNT (AUTO) 7.8 K/uL (4.8-10.8)
[2021-03-07] MEDS ORDERED: NACL 0.9% 1,000 ML IV ONE (15:00)
[2021-03-07 15:10] LABS: CALCIUM 8.4 mg/dL (8.4-11.0); CREATININE 0.81 mg/dL (0.55-1.30); POTASSIUM 3.6 mmol/L (3.5-5.1)
[2021-03-07] MEDS ORDERED: ONDA4TAB5 PO (16:07)
[2021-03-07] MEDS ORDERED: IBUP-1971 PO (16:07)
[2021-03-07 16:12] VITALS: BP_SYST 153
== END 2021-03-07 16:12 | disposition home or self-care (01) ==
LOC: SED 14:05
DX: R56.9 Unspecified convulsions (principal); R11.2 Nausea with vomiting, unspecified; I10 Essential (primary) hypertension; E11.9 Type 2 diabetes mellitus without complications; Z79.899 Other long term (current) drug therapy
CPT/HCPCS: 36415; 80048; 85025; 96360; 99283; J7030

== ENCOUNTER 2021-06-11 21:08 | Inpatient (IN) | payer BC, SELFPAY ==
[~2021-06-11] VITALS: Ht 167.6 cm; Wt 72.4 kg
[~2021-06-11 21:08] MED LIST changes: +IBUP-1971 PO; +ONDA4TAB5 PO
[2021-06-11 21:30] VITALS: BP_SYST 152
--- NOTE | 2021-06-11 21:30 | NUR ---
PT TO BED 7 FOR EVALUATION.
[2021-06-11] MEDS ORDERED: DIPHENHYDRAMINE INJ 50 MG/ML VIAL IVP ONE (21:45)
[2021-06-11] MEDS ORDERED: ONDANSETRON HCL 4 MG/2 ML VIAL IVP ONE (21:45)
[2021-06-11] MEDS ORDERED: LORazepam 2 MG/ML VIAL IVP ONE ×2 (21:45→22:30)
[2021-06-11] MEDS ORDERED: NACL 0.9% 1,000 ML IV ONE ×2 (21:45→22:30)
--- NOTE | 2021-06-11 21:45 | NUR ---
pt arrived to ER with complaints of Nausea and vomiting since 629 today. pt states he has been drinking all of last night, about a 1/5th of vodka is what he stated.. pt states he is an alcoholic. states the drinking is normal for him, but the vomiting is not. states he has thrown up 25-50 times. A&ox4 and states no pain now, just weakness.
--- NOTE | 2021-06-11 22:00 | NUR ---
BG 274
--- NOTE | 2021-06-11 22:00 | NUR ---
# 20 gauge angiocath placed to lac. Use of asceptic technique. Opsite placed over site. Blood return noted. Blood for lab drawn from site. Flushed with 10 cc of normal saline. No evidence of infiltration noted. Patient tolerated well.
[2021-06-11 22:26] LABS: HEMATOCRIT 44.6 % (36-54); LYMPHOCYTES # (AUTO) 0.3 K/uL (1.0-5.5); MONOCYTES # (AUTO) 0.8 K/uL (0.0-1.0); WHITE BLOOD COUNT (AUTO) 11.9 K/uL (4.8-10.8)
[2021-06-11 22:32] LABS: BASOPHILS % (AUTO) 0.2 % (0.0-2.0); HEMOGLOBIN 14.9 g/dL (14.0-18.0); LYMPHOCYTES % (AUTO) 2.7 % (20.5-51.5); MEAN CORPUSCULAR HEMOGLOBIN 28 pg (27-31); MEAN CORPUSCULAR HGB CONC 33 % (32-36); MEAN CORPUSCULAR VOLUME 85 fL (79.0-98.0); MONOCYTES % (AUTO) 6.8 % (1.7-9.3); NEUTROPHILS # (AUTO) 10.8 K/uL (1.8-7.7); NEUTROPHILS % (AUTO) 90.3 % (40.0-70.0); PLATELET COUNT (AUTO) 242 K/uL (130-430); RED BLOOD CELL COUNT(AUTO) 5.24 MIL/uL (4.2-6.2)
[2021-06-11 22:44] LABS: ANION GAP 28 (5-15); CREATININE 0.95 mg/dL (0.55-1.30); GLUCOSE 248 mg/dL (70-99); SODIUM SERUM 137 mmol/L (136-145); UREA NITROGEN, BLOOD 11 mg/dL (8-21)
[2021-06-11 22:49] LABS: ALANINE AMINOTRANSFERASE 60 U/L (12-78); ALBUMIN 4.5 g/dL (3.4-4.8); ASPARTATE AMINOTRANSFERASE 66 U/L (10-37); LIPASE 128 U/L (73-393); TOTAL BILIRUBIN 2.4 mg/dL (0.0-1.0)
[2021-06-11 22:54] LABS: GFR AFRICAN AMERICAN 115 mL/min (>90)
[2021-06-11 22:56] LABS: ALCOHOL, BLOOD < 3 mg/dL (<10); CHLORIDE 84 mmol/L (98-107)
[2021-06-11] MEDS ORDERED: FOLIC ACID 1 MG, THIAMINE HCL 100 MG, MAGNESIUM SULFATE 2 GM, MVI 10 ML in NACL 0.9% 1,... IV ONE (23:15)
[2021-06-11] MEDS ORDERED: FOLIC ACID 5 MG/ML VIAL IV ONE (23:22)
[2021-06-11] MEDS ORDERED: MVI 10 ML VIAL IV ONE (23:22)
[2021-06-11] MEDS ORDERED: MAGNESIUM SULFATE 1 GM/2 ML VIAL ONE ×2 (23:22→23:31)
[2021-06-11] MEDS ORDERED: THIAMINE HCL 100 MG/ML VIAL ONE (23:22)
--- NOTE | 2021-06-11 23:45 | NUR ---
pt had 1 episode of coffee ground emesis. doctor aware.
[2021-06-12] MEDS ORDERED: METOCLOPRAMIDE HCL 10 MG/2 ML VIAL IVP ONE ×2 (00:15→05:45)
[2021-06-12] MEDS ORDERED: PANTOPRAZOLE SODIUM 80 MG in NS 100 ML IV ONE (00:15)
[2021-06-12] MEDS ORDERED: PANTOPRAZOLE SODIUM 40 MG in NS 50 ML IV ONE (00:15)
[2021-06-12] MEDS ORDERED: LORazepam 2 MG/ML VIAL IVP ONE ×2 (00:15→05:45)
[2021-06-12] MEDS ORDERED: NACL 0.9% 1,000 ML IV ONE ×2 (00:30→03:45)
[2021-06-12] MEDS ORDERED: METOPROLOL TARTRATE 5 MG/5 ML AMPUL IVP ONE (00:30)
[2021-06-12] MEDS ORDERED: PANTOPRAZOLE SODIUM 40 MG/VIAL (PROTONIX) ONE ×2 (00:30)
[2021-06-12] MEDS ORDERED: KCL 20 mEq in 100 mL (PREMIX) 100 ML IV ONE (00:30)
--- NOTE | 2021-06-12 02:00 | NUR ---
pt states "im feeling much better", pts VS and color look much better after the medications.
--- NOTE | 2021-06-12 03:55 | NUR ---
pt sleeping in bed, no complaints at this time
--- NOTE | 2021-06-12 05:30 | NUR ---
bg 106
[2021-06-12] MEDS ORDERED: METOCLOPRAMIDE HCL 10 MG/2 ML VIAL ONE (05:41)
[2021-06-12] MEDS ORDERED: LORazepam 2 MG/ML VIAL ONE (05:41)
[2021-06-12] MEDS ORDERED: GLU500 PO (05:57)
--- NOTE | 2021-06-12 05:59 | NUR ---
PT IS FULL CODE
--- NOTE | 2021-06-12 05:59 | NUR ---
PTS MED REC DONE
--- NOTE | 2021-06-12 06:00 | NUR ---
ADMIT ORDERS RECEIVED FROM DR. ZELAYA. PT AWAITING TELE BED PLACEMENT.
--- NOTE | 2021-06-12 06:30 | NUR ---
Waiting on admit orders for pt.
[2021-06-12] MEDS: LR 1,000 ML IV SCH ×2 (06:53→15:33)
--- NOTE | 2021-06-12 07:09 | NUR ---
REPORT GIVEN TO AMY CASTRO WHO WILL ASSUME CARE.
--- NOTE | 2021-06-12 07:10 | NUR ---
Assumed care of patient, report received from AMY Glez. Currently sleeping, awaiting room assignment on Tele floor. V/S stable, no acute distress noted.
[2021-06-12 07:16] LABS: BASOPHILS % (AUTO) 0.4 % (0.0-2.0); HEMATOCRIT 37.9 % (36-54); HEMOGLOBIN 12.6 g/dL (14.0-18.0); LYMPHOCYTES # (AUTO) 1.7 K/uL (1.0-5.5); MEAN CORPUSCULAR HEMOGLOBIN 29 pg (27-31); MEAN CORPUSCULAR HGB CONC 33 % (32-36); MEAN CORPUSCULAR VOLUME 86 fL (79.0-98.0); MONOCYTES % (AUTO) 10.4 % (1.7-9.3); NEUTROPHILS % (AUTO) 72.2 % (40.0-70.0); PLATELET COUNT (AUTO) 194 K/uL (130-430); RED BLOOD CELL COUNT(AUTO) 4.42 MIL/uL (4.2-6.2); RED CELL DISTRIBUTION WIDTH 23.7 % (9.0-15.0); WHITE BLOOD COUNT (AUTO) 9.7 K/uL (4.8-10.8)
[2021-06-12 07:25] LABS: BILIRUBIN,URINE NEGATIVE (NEGATIVE); BLOOD, URINE NEGATIVE (NEGATIVE); COLOR,URINE YELLOW (YELLOW); GLUCOSE,URINE NEGATIVE (NEGATIVE); KETONES,URINE 3+ (NEGATIVE); LEUKOCYTE ESTERASE ,URINE NEGATIVE (NEGATIVE); NITRITE, URINE NEGATIVE (NEGATIVE); PROTEIN URINE TRACE (NEGATIVE); UROBILINOGEN,URINE 0.2 (0.2-1.0)
[2021-06-12 07:40] LABS: CLARITY/URINE SLIGHTLY HAZY (CLEAR)
[2021-06-12 07:57] LABS: BACTERIA,URINE RARE /HPF (None Seen); RBC,URINE NONE SEEN /HPF (0-3); WBC,URINE 0-3 /HPF (0-3)
--- NOTE | 2021-06-12 08:00 | NUR ---
Pt transfered to hospital bed. Provided with breakfast tray.
[2021-06-12] MEDS ORDERED: PANTOPRAZOLE SODIUM 40 MG/VIAL (PROTONIX) IVP ONE (09:00)
[2021-06-12] MEDS: LORazepam 2 MG/ML VIAL IVP PRN (09:34)
[2021-06-12] MEDS ORDERED: THIAMINE HCL 100 MG in NS 50 ML IV ONE (10:00)
[2021-06-12] MEDS ORDERED: INSULIN REGULAR, HUMAN 100 UNITS/ML, 10 ML VIAL (humuLIN R) SUBCUT PRN (10:00)
[2021-06-12] MEDS ORDERED: DEXTROSE 50% JECT 50 ML DISP.SYRIN IVP PRN (10:00)
[2021-06-12] MEDS ORDERED: MAGNESIUM OXIDE 400 MG TABLET PO ONE (10:00)
[2021-06-12] MEDS ORDERED: chlordiazePOXIDE HCL 25 MG CAPSULE PO ONE (10:15)
--- NOTE | 2021-06-12 10:19 | NUR ---
Dr. Patten at bedside to assess patient.
[2021-06-12] MEDS ORDERED: THIAMINE HCL 100 MG/ML VIAL ONE (10:29)
[2021-06-12 10:30] LABS: BASOPHILS % (AUTO) 0.5 % (0.0-2.0); EOSINOPHILS % (AUTO) 0.2 % (0.0-4.0); HEMOGLOBIN 12.2 g/dL (14.0-18.0); LYMPHOCYTES # (AUTO) 1.8 K/uL (1.0-5.5); MEAN CORPUSCULAR HEMOGLOBIN 28 pg (27-31); MEAN CORPUSCULAR HGB CONC 33 % (32-36); MEAN CORPUSCULAR VOLUME 86 fL (79.0-98.0); MONOCYTES % (AUTO) 10.2 % (1.7-9.3); NEUTROPHILS # (AUTO) 6.9 K/uL (1.8-7.7); NEUTROPHILS % (AUTO) 71.1 % (40.0-70.0); PLATELET COUNT (AUTO) 183 K/uL (130-430); RED BLOOD CELL COUNT(AUTO) 4.31 MIL/uL (4.2-6.2); RED CELL DISTRIBUTION WIDTH 24.3 % (9.0-15.0); WHITE BLOOD COUNT (AUTO) 9.8 K/uL (4.8-10.8)
[2021-06-12] MEDS ORDERED: FAMOTIDINE 20 MG TABLET PO ONE (10:30)
[2021-06-12 10:37] LABS: CREATININE 0.93 mg/dL (0.55-1.30); POTASSIUM 3.3 mmol/L (3.5-5.1)
[2021-06-12 10:43] LABS: ALBUMIN 3.1 g/dL (3.4-4.8); TOTAL BILIRUBIN 1.8 mg/dL (0.0-1.0)
[2021-06-12] MEDS ORDERED: cloNIDine HCL 0.1 MG TABLET PO PRN (10:45)
[2021-06-12] MEDS ORDERED: LORazepam 1 MG TABLET PO ONE (10:45)
--- NOTE | 2021-06-12 11:13 | NUR ---
Radiology at bedside for abdominal ultra sound
--- NOTE | 2021-06-12 12:30 | NUR ---
Pt declined lunch tray.
[2021-06-12] MEDS ORDERED: chlordiazePOXIDE HCL 25 MG CAPSULE PO SCH (13:00)
--- NOTE | 2021-06-12 15:00 | NUR ---
Pt currently resting in bed, v/s stable, no acute distress noted.
[2021-06-12] MEDS: LORazepam 1 MG TABLET PO SCH ×2 (17:30→21:57)
--- NOTE | 2021-06-12 17:30 | NUR ---
Pt provided dinner tray, declined. Encouraged pt to drink ensure, pt tolerated well.
--- NOTE | 2021-06-12 18:00 | NUR ---
PT IS CURRENTLY SLEEPING IN BED
--- NOTE | 2021-06-12 20:14 | NUR ---
# 22 gauge angiocath placed to rfa. Use of asceptic technique. Opsite placed over site. Blood return noted. Flushed with 10 cc of normal saline. No evidence of infiltration noted. Patient tolerated well.
--- NOTE | 2021-06-12 20:19 | NUR ---
Patient will be admitted to care of Dr. Patten. Admitted to tele unit. Will go to room 112A. Belongings list completed. Complete and up to date summary report printed. SBAR report to be given at bedside with opportunity for questions.
[2021-06-12] MEDS ORDERED: TEMAZEPAM 15 MG CAPSULE PO SCH (21:00)
[2021-06-12 21:10] VITALS: BP_SYST 143
[2021-06-12 21:15] VITALS: BP_SYST 143
[2021-06-12 21:30] VITALS: BP_SYST 143
--- NOTE | 2021-06-12 21:30 | NUR ---
PT ARRIVED FROM ED VIA STRETCHER. PT A+O*NPTE. PT HAS IV SITE TO LA - SITE PATENT W IVF INFUSING WELL. PT USES URINAL. ALL MONITOR LEADS ATTACHED. VS: 143/108, 96%, 18, 96.6, 95 (SINUS TACHYCARDIA).
[2021-06-12] MEDS: MAGNESIUM OXIDE 400 MG TABLET PO SCH (21:56)
[2021-06-12] MEDS: FAMOTIDINE 20 MG TABLET PO SCH (21:57)
[2021-06-12 22:00] VITALS: BP_SYST 143
[2021-06-13 00:20] VITALS: BP_SYST 147
[2021-06-13] MEDS: LR 1,000 ML IV SCH (02:14)
--- NOTE | 2021-06-13 02:19 | NUR ---
PAGED FOR CONSULT SAVANAH SOTO ORDERING PHYSICIAN: REASON FOR CONSULT:ABNORMAL LFT DIALED: [phone] SPOKE TO:CATHERINE
[2021-06-13] MEDS: LORazepam 2 MG/ML VIAL IVP PRN (02:34)
--- NOTE | 2021-06-13 02:42 | NUR ---
PRN ATIVAN ADMINISTERED PER PT REQUEST VIA IVP - 1MG (0.5ML). PT TOLERATED WELL.
--- NOTE | 2021-06-13 05:44 | NUR ---
ETOH ON & OFF SINCE AGE 18.
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
--- NOTE | 2021-06-13 06:42 | NUR ---
BLOOD SUGAR = 78. TWO APPLE JUICES PROVIDED FOR NOW.
[2021-06-13 06:51] LABS: BASOPHILS % (AUTO) 0.5 % (0.0-2.0); EOSINOPHILS % (AUTO) 0.3 % (0.0-4.0); HEMATOCRIT 41.5 % (36-54); HEMOGLOBIN 13.7 g/dL (14.0-18.0); LYMPHOCYTES # (AUTO) 2.1 K/uL (1.0-5.5); LYMPHOCYTES % (AUTO) 26.7 % (20.5-51.5); MEAN CORPUSCULAR HEMOGLOBIN 29 pg (27-31); MEAN CORPUSCULAR HGB CONC 33 % (32-36); MEAN CORPUSCULAR VOLUME 86 fL (79.0-98.0); MONOCYTES # (AUTO) 0.7 K/uL (0.0-1.0); MONOCYTES % (AUTO) 8.8 % (1.7-9.3); NEUTROPHILS % (AUTO) 63.7 % (40.0-70.0); PLATELET COUNT (AUTO) 210 K/uL (130-430); RED BLOOD CELL COUNT(AUTO) 4.81 MIL/uL (4.2-6.2); RED CELL DISTRIBUTION WIDTH 23.1 % (9.0-15.0); WHITE BLOOD COUNT (AUTO) 7.8 K/uL (4.8-10.8)
[2021-06-13 08:00] VITALS: BP_SYST 154
[2021-06-13] MEDS ORDERED: THIAMINE HCL 100 MG TABLET PO SCH (09:00)
[2021-06-13] MEDS: FAMOTIDINE 20 MG TABLET PO SCH (09:21)
[2021-06-13] MEDS: MAGNESIUM OXIDE 400 MG TABLET PO SCH (09:21)
[2021-06-13] MEDS: LORazepam 1 MG TABLET PO SCH (09:22)
[2021-06-13 11:25] LABS: CREATININE 0.57 mg/dL (0.55-1.30); POTASSIUM 3.8 mmol/L (3.5-5.1); TOTAL BILIRUBIN 1.3 mg/dL (0.0-1.0); URIC ACID 6.4 mg/dL (2.4-7.0)
[2021-06-13] MEDS ORDERED: CLON0.1T PO (11:55)
[2021-06-13] MEDS ORDERED: Thiamine Hcl PO (11:55)
[2021-06-13] MEDS ORDERED: FAMO20TA8 PO (11:55)
[2021-06-13] MEDS ORDERED: MAGN400T10 PO (11:55)
--- NOTE | 2021-06-13 12:22 | NUR ---
patient refused blood sugar to be checked at lunch. he said he is not going to eat in the hospital. he is getting discharged.
[2021-06-13 12:32] VITALS: BP_SYST 161
--- NOTE | 2021-06-13 13:22 | NUR ---
D/C Patient Patient given medication reconciliation form and D/C instructions. Exit Care provided. Patient verbalized understanding. MD discussed with patient the results and treatment provided. Ambulatory with steady gait for discharge to home. Patient in stable condition, ID band removed. IV catheter removed, intact and dressing applied, no active bleeding. Rx of Thiamine, Magnesium oxide, famotidine, clonidine was given. Patient educated on pain management. All belongings sent with patient.
[2021-06-13 13:23] VITALS: BP_SYST 161
== END 2021-06-13 13:25 | disposition home or self-care (01) | DRG 378 ==
LOC: SED 21:08 → STU 06-12 05:47
PROVIDERS: ADMIT Internal Medicine; ATTEND Internal Medicine
DX: K92.2 Gastrointestinal hemorrhage, unspecified (principal); D62 Acute posthemorrhagic anemia; M04.2 Cryopyrin-associated periodic syndromes; E86.0 Dehydration; E87.6 Hypokalemia; K70.10 Alcoholic hepatitis without ascites; E11.9 Type 2 diabetes mellitus without complications; I10 Essential (primary) hypertension; M10.9 Gout, unspecified; Z20.822 Contact with and (suspected) exposure to COVID-19; E78.5 Hyperlipidemia, unspecified; F10.10 Alcohol abuse, uncomplicated; Y90.9 Presence of alcohol in blood, level not specified; F12.90 Cannabis use, unspecified, uncomplicated; K70.9 Alcoholic liver disease, unspecified; Z79.1 Long term (current) use of non-steroidal anti-inflammatories (NSAID); Z79.899 Other long term (current) drug therapy; Z83.3 Family history of diabetes mellitus; Z90.81 Acquired absence of spleen
CPT/HCPCS: 36415; 74018; 76700-TC; 80053; 80061; 81000; 82962; 83690; 84550; 85025; 86886; 86900; 86901; 93005; 96361; 96365; 96375; 96376; 99285; C9113; G0378; G0482; J1200; J1815; J2060; J2405; J2765; J3411; J3475; J3480; J3490

== ENCOUNTER 2021-12-10 19:05 | Inpatient (IN) | payer BC, SELFPAY ==
[~2021-12-10] VITALS: Ht 167.6 cm; Wt 68.0 kg
[2021-12-10 13:30] VITALS: BP_SYST 117
[2021-12-10 19:05] VITALS: BP_SYST 141
[~2021-12-10 19:05] MED LIST changes: +CLON0.1T PO; +FAMO20TA8 PO; -GLIM1TAB PO; +GLU500 PO; -IBUP-1971 PO; -LIB25 PO; -LIP40 PO; +MAGN400T10 PO; -ONDA4TAB5 PO; +Thiamine Hcl PO
[2021-12-10] MEDS ORDERED: NACL 0.9% 2,000 ML IV ONE (19:15)
[2021-12-10] MEDS ORDERED: LORazepam 2 MG/ML VIAL IVP ONE (19:30)
[2021-12-10] MEDS ORDERED: ONDANSETRON HCL 4 MG/2 ML VIAL IVP ONE (19:30)
[2021-12-10 19:56] LABS: BASOPHILS % (AUTO) 0.4 % (0.0-2.0); EOSINOPHILS % (AUTO) 0.1 % (0.0-4.0); HEMATOCRIT 49.8 % (36-54); HEMOGLOBIN 16.3 g/dL (14.0-18.0); LYMPHOCYTES # (AUTO) 1.5 K/uL (1.0-5.5); LYMPHOCYTES % (AUTO) 14.6 % (20.5-51.5); MEAN CORPUSCULAR HEMOGLOBIN 27 pg (27-31); MEAN CORPUSCULAR HGB CONC 33 % (32-36); MEAN CORPUSCULAR VOLUME 84 fL (79.0-98.0); MONOCYTES # (AUTO) 0.5 K/uL (0.0-1.0); MONOCYTES % (AUTO) 4.7 % (1.7-9.3); NEUTROPHILS # (AUTO) 8.3 K/uL (1.8-7.7); NEUTROPHILS % (AUTO) 80.2 % (40.0-70.0); PLATELET COUNT (AUTO) 353 K/uL (130-430); RED BLOOD CELL COUNT(AUTO) 5.96 MIL/uL (4.2-6.2); WHITE BLOOD COUNT (AUTO) 10.3 K/uL (4.8-10.8)
[2021-12-10 20:01] LABS: ACETONE, SERUM NEGATIVE (NEGATIVE)
[2021-12-10 20:17] LABS: ANION GAP 14 (5-15); CALCIUM 8.2 mg/dL (8.4-11.0); CREATININE 1.27 mg/dL (0.55-1.30); GLUCOSE 158 mg/dL (70-99); SODIUM SERUM 132 mmol/L (136-145); UREA NITROGEN, BLOOD 12 mg/dL (8-21)
[2021-12-10 20:20] LABS: POTASSIUM 2.5 mmol/L (3.5-5.1)
[2021-12-10 20:21] LABS: ALANINE AMINOTRANSFERASE 69 U/L (12-78); ALBUMIN 4.2 g/dL (3.4-4.8); ALCOHOL, BLOOD 4 mg/dL (<10); AMYLASE 75 U/L (0-100); ASPARTATE AMINOTRANSFERASE 68 U/L (10-37); CHLORIDE 84 mmol/L (98-107); LIPASE 92 U/L (73-393)
[2021-12-10] MEDS ORDERED: GLYB2.5T5 PO (20:24)
[2021-12-10] MEDS ORDERED: METF-518 PO (20:24)
[2021-12-10] MEDS ORDERED: VAL2 PO (20:24)
[2021-12-10] MEDS ORDERED: POTASSIUM CHLORIDE 20 MEQ/PKT PACKET PO ONE (20:30)
[2021-12-10] MEDS ORDERED: METOCLOPRAMIDE HCL 10 MG/2 ML VIAL ONE (21:15)
[2021-12-10] MEDS ORDERED: METOCLOPRAMIDE HCL 10 MG/2 ML VIAL IVP ONE (21:15)
[2021-12-10] MEDS ORDERED: FOLIC ACID 1 MG, THIAMINE HCL 100 MG, MAGNESIUM SULFATE 1 GM, MVI 10 ML in NACL 0.9% 1,... IV ONE (21:15)
[2021-12-10] MEDS ORDERED: LORazepam 2 MG/ML VIAL IVP PRN ×2 (21:15→21:30)
[2021-12-10] MEDS ORDERED: ACETAMINOPHEN 325 MG TABLET PO PRN (21:30)
[2021-12-10] MEDS ORDERED: HYDROcodone/ACETAMIN 10-325 MG TAB PO PRN (21:30)
[2021-12-10] MEDS ORDERED: NALOXONE HCL 0.4 MG/ML AMP (NARCAN) IVP PRN ×2 (21:30)
[2021-12-10] MEDS ORDERED: ONDANSETRON HCL 4 MG/2 ML VIAL IVP PRN (21:30)
[2021-12-10] MEDS ORDERED: DIAZEPAM 2 MG TABLET (VALIUM) PO PRN (21:30)
[2021-12-10 22:29] VITALS: BP_SYST 128
[2021-12-10] MEDS: D5/0.45 NS 1,000 ML IV SCH (23:17)
[2021-12-11 07:23] LABS: CREATININE 1.07 mg/dL (0.55-1.30); PHOSPHORUS 3.7 mg/dL (2.7-4.5)
[2021-12-11 08:00] VITALS: BP_SYST 131
[2021-12-11 08:02] LABS: BASOPHILS % (AUTO) 0.5 % (0.0-2.0); EOSINOPHILS # (AUTO) 0.1 K/uL (0.0-0.4); EOSINOPHILS % (AUTO) 0.6 % (0.0-4.0); HEMATOCRIT 41.1 % (36-54); HEMOGLOBIN 13.4 g/dL (14.0-18.0); LYMPHOCYTES # (AUTO) 1.8 K/uL (1.0-5.5); LYMPHOCYTES % (AUTO) 18.6 % (20.5-51.5); MEAN CORPUSCULAR HEMOGLOBIN 27 pg (27-31); MEAN CORPUSCULAR HGB CONC 33 % (32-36); MEAN CORPUSCULAR VOLUME 84 fL (79.0-98.0); MONOCYTES # (AUTO) 0.4 K/uL (0.0-1.0); MONOCYTES % (AUTO) 4.3 % (1.7-9.3); NEUTROPHILS # (AUTO) 7.2 K/uL (1.8-7.7); PLATELET COUNT (AUTO) 279 K/uL (130-430); RED BLOOD CELL COUNT(AUTO) 4.88 MIL/uL (4.2-6.2); WHITE BLOOD COUNT (AUTO) 9.5 K/uL (4.8-10.8)
[2021-12-11] MEDS: metFORMIN HCL 500 MG TABLET PO SCH ×2 (08:38→18:04)
[2021-12-11] MEDS: glyBURIDE 5 MG TABLET PO SCH (08:39)
[2021-12-11 08:52] LABS: POTASSIUM 2.5 mmol/L (3.5-5.1)
[2021-12-11 08:53] LABS: CALCIUM 6.3 mg/dL (8.4-11.0)
[2021-12-11] MEDS ORDERED: glyBURIDE 2.5 MG TABLET PO SCH (09:00)
[2021-12-11] MEDS ORDERED: POTASSIUM CHLORIDE 40 MEQ in NS 250 ML IV ONE (09:30)
[2021-12-11] MEDS: HYDROcodone/ACETAMIN 5-325 MG TAB (NORCO/ VICODIN) PO PRN ×2 (09:41→14:02)
[2021-12-11] MEDS: D5/0.45 NS 1,000 ML IV SCH (09:56)
[2021-12-11 12:00] VITALS: BP_SYST 111
[2021-12-11] MEDS ORDERED: KCL 40 mEq in 100 mL (PREMIX) 100 ML IV ONE (13:45)
[2021-12-11] MEDS ORDERED: FOLIC ACID 1 MG, THIAMINE HCL 100 MG, MAGNESIUM SULFATE 1 GM, MVI 10 ML in NACL 0.9% 1,... IV ONE (14:00)
[2021-12-11] MEDS ORDERED: CALCIUM GLUCONATE 2 GM in NS 100 ML IV ONE (14:45)
[2021-12-11] MEDS ORDERED: THIAMINE HCL 100 MG, MAGNESIUM SULFATE 1 GM in NS 100 ML IV SCH (15:15)
[2021-12-11] MEDS ORDERED: FOLIC ACID 1 MG, MVI 10 ML in NACL 0.9% 1,000 ML IV SCH (15:15)
[2021-12-11] MEDS ORDERED: POTASSIUM CHLORIDE 20 MEQ TAB.PRT.SR PO ONE (15:30)
[2021-12-11] MEDS ORDERED: CALCIUM CARBONATE 650 MG TABLET PO SCH (15:30)
[2021-12-11] MEDS ORDERED: CALCIUM 500 MG/TAB PO ONE (15:45)
[2021-12-11] MEDS ORDERED: CALCIUM CARBONATE 650 MG TABLET PO ONE (15:45)
[2021-12-11 16:00] VITALS: BP_SYST 136
[2021-12-11] MEDS: POTASSIUM CHLORIDE 20 mEq in 100 mL (PREMIX) 100 ML x 2 doses IV SCH ×2 (20:10→23:25)
[2021-12-11 20:30] VITALS: BP_SYST 146
[2021-12-11 20:50] VITALS: BP_SYST 146
[2021-12-11] MEDS ORDERED: KCL 20 mEq in 100 mL (PREMIX) 100 ML IV ONE (23:24)
[2021-12-12] VITALS: BP_SYST 137
[2021-12-12 06:36] LABS: BASOPHILS % (AUTO) 0.6 % (0.0-2.0); EOSINOPHILS # (AUTO) 0.1 K/uL (0.0-0.4); EOSINOPHILS % (AUTO) 1.9 % (0.0-4.0); HEMATOCRIT 42.4 % (36-54); HEMOGLOBIN 13.7 g/dL (14.0-18.0); LYMPHOCYTES # (AUTO) 1.6 K/uL (1.0-5.5); LYMPHOCYTES % (AUTO) 23.2 % (20.5-51.5); MEAN CORPUSCULAR HEMOGLOBIN 27 pg (27-31); MEAN CORPUSCULAR HGB CONC 32 % (32-36); MEAN CORPUSCULAR VOLUME 85 fL (79.0-98.0); MONOCYTES # (AUTO) 0.5 K/uL (0.0-1.0); MONOCYTES % (AUTO) 6.6 % (1.7-9.3); NEUTROPHILS # (AUTO) 4.7 K/uL (1.8-7.7); NEUTROPHILS % (AUTO) 67.7 % (40.0-70.0); PLATELET COUNT (AUTO) 230 K/uL (130-430); RED BLOOD CELL COUNT(AUTO) 5.02 MIL/uL (4.2-6.2); RED CELL DISTRIBUTION WIDTH 20.6 % (9.0-15.0)
[2021-12-12 07:00] LABS: CALCIUM 8.1 mg/dL (8.4-11.0); CREATININE 0.82 mg/dL (0.55-1.30); PHOSPHORUS 4.5 mg/dL (2.7-4.5); POTASSIUM 3.2 mmol/L (3.5-5.1); TOTAL BILIRUBIN 0.9 mg/dL (0.0-1.0)
[2021-12-12 07:53] VITALS: BP_SYST 124
[2021-12-12] MEDS: metFORMIN HCL 500 MG TABLET PO SCH (08:59)
[2021-12-12] MEDS: glyBURIDE 5 MG TABLET PO SCH (08:59)
[2021-12-12] MEDS ORDERED: CALCIUM 500 MG/TAB PO SCH (09:00)
[2021-12-12] MEDS ORDERED: POTASSIUM CHLORIDE 20 MEQ TAB.PRT.SR PO ONE (11:00)
[2021-12-12 11:18] VITALS: BP_SYST 138
[2021-12-12 11:22] VITALS: BP_SYST 138
[2021-12-12] MEDS ORDERED: METF-379 PO (11:24)
[2021-12-12] MEDS ORDERED: OSC500 PO (11:24)
[2021-12-12] MEDS ORDERED: THIA100T70 PO (11:24)
[2021-12-12] MEDS ORDERED: FOLI-43 PO (11:24)
[2021-12-12] MEDS ORDERED: MULT-1089 PO (11:24)
== END 2021-12-12 12:25 | disposition home or self-care (01) | DRG 641 ==
LOC: SED 19:05 → STU 21:04
PROVIDERS: ADMIT Preventive Medicine Preventive Medicine/Occupational Environmental Medicine; ATTEND Preventive Medicine Preventive Medicine/Occupational Environmental Medicine
DX: E86.0 Dehydration (principal); Q89.01 Asplenia (congenital); F10.231 Alcohol dependence with withdrawal delirium; E11.65 Type 2 diabetes mellitus with hyperglycemia; E87.1 Hypo-osmolality and hyponatremia; E87.2 Acidosis; E83.42 Hypomagnesemia; E83.51 Hypocalcemia; S00.11XA Contusion of right eyelid and periocular area, initial encounter; R74.01 Elevation of levels of liver transaminase levels; Z20.822 Contact with and (suspected) exposure to COVID-19; E87.6 Hypokalemia; S09.93XA Unspecified injury of face, initial encounter; E88.09 Other disorders of plasma-protein metabolism, not elsewhere classified; G40.909 Epilepsy, unspecified, not intractable, without status epilepticus; I10 Essential (primary) hypertension; W18.39XA Other fall on same level, initial encounter; Y93.89 Activity, other specified; Y92.098 Other place in other non-institutional residence as the place of occurrence of the external cause; Y99.8 Other external cause status; Z79.899 Other long term (current) drug therapy; Z79.84 Long term (current) use of oral hypoglycemic drugs
CPT/HCPCS: 36415; 70450-TC; 71045; 76376; 80048; 80053; 82009; 82150; 82962; 83605; 83690; 83735; 84100; 85025; 96361; 96374; 96375; 99285; G0378; G0482; J0610; J2060; J2405; J2765; J3411; J3475; J3480; J3490; J7030; J7050